=== PATIENT | female | born 1975 | race Caucasian/White ===

== ENCOUNTER 2019-04-03 20:34 | Emergency (ER) | payer OTHER ==
[~2019-04-03] VITALS: Ht 177.8 cm; Wt 68.0 kg
[2019-04-03 21:05] VITALS: BP 115/65
[2019-04-03 22:00] VITALS: BP 127/65
--- NOTE | 2019-04-03 22:00 | ER.PDOC ---
General Chief Complaint: Sore Throat Stated Complaint: POSS STREP Time seen by MD: 21:57 Source: patient Exam Limitations: no limitations History of Present Illness Initial Comments Sore throat for past few days. No fever or chills. Timing/Duration: gradual Associated Symptoms: mild sore throat Severity: mild Allergies: Coded Allergies: No Known Allergies (Unverified , 02/09/15) Past Medical History Surgical History: no surgical history Social History Alcohol Use: none Drug Use: none Constitutional: no symptoms reported Throat: see HPI Respiratory: no symptoms reported Cardiovascular: no symptoms reported Gastrointestinal: no symptoms reported Musculoskeletal: no symptoms reported All Other Systems: Reviewed and Negative Physical Exam General Appearance: alert, no distress Eyes: eyes nml inspection, PERRL, no nystagmus Mouth: lips, gums nml, no drooling, no thrush, membranes nml Throat: pharynx nml, voice nml, no airway problems Ears/Nose: nml inspection Respiratory: no resp. distress, lungs clear CVS: reg. rate & rhythm, heart sounds nml Abdomen: non-tender, no organomegaly Extremities: non-tender, ROM nml Skin Exam: Normal Color, Warm/Dry NEURO/PSYCH: oriented X3, mood/effect nml Results/Orders Results/Orders Orders - BRIANA RUBIO MD Strep Screen (04/03/19 21:05) Vital Signs Date Time Temp Pulse Resp B/P (MAP) Pulse Ox O2 Delivery O2 Flow Rate FiO2 04/03/19 21:05 98.2 70 16 115/65 (82) 99 Room Air 04/03/19 21:05 98.2 70 16 04/03/19 21:05 98.2 70 16 99 Laboratory Tests Test 04/03/19 21:00 Group A Streptococcus Screen NEGATIVE (NEGATIVE) Departure Time of Disposition: 21:58 Disposition: 01 HOME, SELF-CARE Impression: Primary Impression: Acute viral pharyngitis Condition: Stable Referrals: PCP,UNKNOWN (PCP) PRIMARY CARE PROVIDER Additional Instructions: Chloraseptic spray OTC as needed for throat pain F/U with PCP in 3-5 days Return to ED if worsening symptoms or concerns. Duration or Time Spent with Pa: 10 mins BRIANA RUBIO MD Apr 03, 2019 22:00
== END 2019-04-03 22:01 | disposition home or self-care (01) ==
LOC: ER 20:34
DX: J02.8 Acute pharyngitis due to other specified organisms (principal); B97.89 Other viral agents as the cause of diseases classified elsewhere
CPT/HCPCS: 87070; 87880; 99284